=== PATIENT | female | born 1960 | race Caucasian/White ===

== ENCOUNTER 2017-07-12 20:17 | Emergency (ER) | payer OTHER, MEDICAID ==
[2017-07-12] MEDS: ONDANSETRON 4 MG INJ IV (23:09)
[2017-07-12] MEDS: ACETAMINOPHEN 500 MG TAB PO (23:09)
[2017-07-12] MEDS: KETOROLAC 30 MG INJ IV (23:09)
[2017-07-12] MEDS: SOD CHLORIDE 0.9% 1,000 ML IV (23:10)
== END 2017-07-13 00:37 | disposition home or self-care (01) ==
LOC: FTE 07-13 00:37
DX: J11.1 Influenza due to unidentified influenza virus with other respiratory manifestations (principal); R11.0 Nausea
CPT/HCPCS: 87070; 87400; 87880; 96361; 96374; 96375; 99284-25